=== PATIENT | male | born 1975 | race Caucasian/White ===

== ENCOUNTER 2020-05-24 14:41 | Emergency (ER) | payer BC ==
[2020-05-24 14:48] VITALS: BP 108/52; PULSE 76; RESP 18; TEMP 97.5
--- NOTE | 2020-05-24 15:27 | ED ---
General Adult HPI - General Chief complaint: Recheck/Abnormal Lab/Rx Stated complaint: RT midline leak Time Seen by Provider: 05/24/20 14:49 Source: patient, RN notes reviewed, Caregiver Mode of arrival: wheelchair Limitations: no limitations - History of Present Illness Initial comments: 45-year-old male presents emergency Department chief complaint of leaking midline. 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 room states that noticed some leaking during infusions of antibiotics. No increased redness swelling or pain of the right arm no other complaints. - Related Data Allergies Allergy/AdvReac Type Severity Reaction Status Date / Time vancomycin Allergy Rash/Hives Verified 05/24/20 14:48 Review of Systems ROS Statement: Those systems with pertinent positive or pertinent negative responses have been documented in the HPI. ROS Other: All systems not noted in ROS Statement are negative. Past Medical History Past Medical History: COPD, CVA/TIA, Myocardial Infarction ([place]) Additional Past Medical History / Comment(s): CVA 03/2020 History of Any Multi-Drug Resistant Organisms: None Reported Past Surgical History: Heart Catheterization With Stent Smoking Status: Former smoker Past Alcohol Use History: None Reported Past Drug Use History: None Reported General Exam General appearance: alert, in no apparent distress Head exam: Present: atraumatic, normocephalic, normal inspection Eye exam: Present: normal appearance, PERRL, EOMI. Absent: scleral icterus, conjunctival injection, periorbital swelling ENT exam: Present: normal exam, mucous membranes moist Respiratory exam: Present: normal lung sounds bilaterally. Absent: respiratory distress, wheezes, rales, rhonchi, stridor Cardiovascular Exam: Present: regular rate, normal rhythm, normal heart sounds. Absent: systolic murmur, diastolic murmur, rubs, gallop, clicks Extremities exam: Present: other (Right upper arm there is a midline noted there is no swelling erythema or drainage there is taking surrounding the sites that was placed by an outside facility, it was easily flushed with no leaking) Course Vital Signs 05/24/20 14:42 Temperature 97.5 F L Pulse Rate 76 Respiratory 18 Rate Blood Pressure 108/52 O2 Sat by Pulse 100 Oximetry Medical Decision Making - Medical Decision Making I did contact cardiovascular lab and which he came down evaluated midline changed cervical, change dressing which is clean and dry now. It was infused with no leaking patient was discharged in stable condition. Disposition Clinical Impression: Problem with intravenous catheter Disposition: HOME SELF-CARE Condition: Stable Instructions (If sedation given, give patient instructions): How to Care for Your Midline Catheter (ED) Additional Instructions: Please return to the Emergency Department if symptoms worsen or any other concerns. Is patient prescribed a controlled substance at d/c from ED?: No Referrals: Jose Hodges MD [Primary Care Provider] - 1-2 days Time of Disposition: 15:26
== END 2020-05-24 15:35 | disposition home or self-care (01) ==
LOC: EC 14:41
DX: T82.9XXA Unspecified complication of cardiac and vascular prosthetic device, implant and graft, initial encounter (principal); I25.2 Old myocardial infarction; Z88.1 Allergy status to other antibiotic agents; Z86.73 Personal history of transient ischemic attack (TIA), and cerebral infarction without residual deficits; Z87.891 Personal history of nicotine dependence; Z95.5 Presence of coronary angioplasty implant and graft
CPT/HCPCS: 99282

== ENCOUNTER 2020-05-24 19:29 | Emergency (ER) | payer BC ==
[2020-05-24 19:40] VITALS: BP 112/57; PULSE 80; RESP 18; TEMP 97.9
--- NOTE | 2020-05-24 20:18 | ED ---
General Adult HPI - General Chief complaint: Recheck/Abnormal Lab/Rx Stated complaint: Revisit/ leaking midline Time Seen by Provider: 05/24/20 19:49 Source: patient, family Mode of arrival: wheelchair Limitations: no limitations - History of Present Illness Initial comments: 45-year-old male presents to the emergency room for a chief complaint of midline issues. Patient has a midline placed for a heart valve infection. Care is through [facility]. Apparently earlier today his midline started to leak during one of his infusions. He came to the hospital and it was evaluated by the Safety Associate who did an infusion without it leaking and felt it was fine. However on patient's last infusion is started to leak again. They therefore presented to the emergency room as patient's does not feel he is getting the entire antibiotic.Patient has no other complaints at this time including shortness of breath, chest pain, abdominal pain, nausea or vomiting, headache, or visual changes. - Related Data Home Medications Medication Instructions Recorded Confirmed ALPRAZolam [Xanax] 0.25 mg PO BID PRN 05/24/20 05/24/20 Allopurinol [Zyloprim] 100 mg PO HS 05/24/20 05/24/20 Amiodarone HCl [Pacerone] 100 mg PO HS 05/24/20 05/24/20 Atorvastatin [Lipitor] 40 mg PO HS 05/24/20 05/24/20 Clopidogrel [Plavix] 75 mg PO HS 05/24/20 05/24/20 Escitalopram [Lexapro] 10 mg PO DAILY 05/24/20 05/24/20 Furosemide [Lasix] 20 mg PO HS 05/24/20 05/24/20 Midodrine [ProAmatine] 5 mg PO BID 05/24/20 05/24/20 Penicillin Unknown Dose 1 dose IV Q4H 05/24/20 05/24/20 Topiramate [Topamax] 50 mg PO BID 05/24/20 05/24/20 levETIRAcetam [Keppra] 500 mg PO Q12HR 05/24/20 05/24/20 Allergies Allergy/AdvReac Type Severity Reaction Status Date / Time vancomycin Allergy Rash/Hives Verified 05/24/20 15:33 Review of Systems ROS Statement: Those systems with pertinent positive or pertinent negative responses have been documented in the HPI. ROS Other: All systems not noted in ROS Statement are negative. Past Medical History Past Medical History: COPD, CVA/TIA, Myocardial Infarction ([place]) Additional Past Medical History / Comment(s): CVA 03/2020 History of Any Multi-Drug Resistant Organisms: None Reported Past Surgical History: Heart Catheterization With Stent Smoking Status: Former smoker Past Alcohol Use History: None Reported Past Drug Use History: None Reported General Exam Limitations: no limitations General appearance: alert Head exam: Present: atraumatic Eye exam: Present: normal appearance ENT exam: Present: normal exam, mucous membranes moist Neck exam: Present: normal inspection. Absent: full ROM Respiratory exam: Present: normal lung sounds bilaterally. Absent: respiratory distress Cardiovascular Exam: Present: regular rate, normal rhythm, normal heart sounds GI/Abdominal exam: Present: soft. Absent: distended, tenderness Extremities exam: Present: other (Patient has midline placed in the right arm. There is no erythema or edema around this area. No bleeding. No streaking redness.) Course Vital Signs 05/24/20 19:37 Temperature 97.9 F Pulse Rate 80 Respiratory 18 Rate Blood Pressure 112/57 O2 Sat by Pulse 98 Oximetry Medical Decision Making - Medical Decision Making Unfortunately it is 8 PM and we do not have anyone available to replace midline. Peripheral line was established and patient was given a dose of his antibiotics. He will go to [facility] tomorrow as this is where the midline was placed to address this concern. He will return to the emergency room for any worsening symptoms. Disposition Clinical Impression: Problem with intravenous catheter Disposition: HOME SELF-CARE Condition: Good Instructions (If sedation given, give patient instructions): How to Care for Your Midline Catheter (ED) Additional Instructions: Please go to [facility] tomorrow so your medical team can address this issue. Please return to the emergency room for any worsening symptoms. Is patient prescribed a controlled substance at d/c from ED?: No Referrals: Jose Hodges MD [Primary Care Provider] - 1-2 days Time of Disposition: 20:17
== END 2020-05-24 21:00 | disposition home or self-care (01) ==
LOC: EC 19:29
DX: T82.9XXA Unspecified complication of cardiac and vascular prosthetic device, implant and graft, initial encounter (principal); J44.9 Chronic obstructive pulmonary disease, unspecified; I25.2 Old myocardial infarction; Z79.02 Long term (current) use of antithrombotics/antiplatelets; Z79.899 Other long term (current) drug therapy; Z88.1 Allergy status to other antibiotic agents; Z86.73 Personal history of transient ischemic attack (TIA), and cerebral infarction without residual deficits; Z95.5 Presence of coronary angioplasty implant and graft; Z87.891 Personal history of nicotine dependence
CPT/HCPCS: 99283

== ENCOUNTER 2020-05-26 09:04 | Emergency (ER) | payer BC ==
[2020-05-26] MEDS ORDERED: SODIUM CHLORIDE 0.9% 1,000 ML IV STA ×2 (10:11)
[2020-05-26] MEDS ORDERED: HYDROmorphone 1 MG/ML 1 ML SYRINGE IVP STA (10:15)
--- NOTE | 2020-05-26 10:17 | ED ---
Recheck HPI - General Chief Complaint: Recheck/Abnormal Lab/Rx Stated Complaint: needs midline changed/dehydration/headache Time Seen by Provider: 05/26/20 09:45 Source: patient, family, RN notes reviewed Mode of arrival: ambulatory Limitations: no limitations - History of Present Illness Initial Comments: This is a 45-year-old male with a history of a cerebral aneurysm and bleed this past year who has residual left-sided upper lower extremity weakness who presents with complaints of waking up with a headache this morning he states his occipital sharp 8/10 severity additionally he's had PICC line problems and has not been able to get his antibiotics for at least 2 days. He was instructed to come for evaluation he apparently has not been eating and drinking well his urine has become dark. He does feel generally weak. No fevers chills or sweats reported - Related Data Home Medications Medication Instructions Recorded Confirmed ALPRAZolam [Xanax] 0.25 mg PO BID PRN 05/24/20 05/26/20 Allopurinol [Zyloprim] 100 mg PO HS 05/24/20 05/26/20 Amiodarone HCl [Pacerone] 100 mg PO HS 05/24/20 05/26/20 Atorvastatin [Lipitor] 40 mg PO HS 05/24/20 05/26/20 Clopidogrel [Plavix] 75 mg PO HS 05/24/20 05/26/20 Escitalopram [Lexapro] 10 mg PO DAILY 05/24/20 05/26/20 Furosemide [Lasix] 20 mg PO HS 05/24/20 05/26/20 Midodrine [ProAmatine] 5 mg PO BID 05/24/20 05/26/20 Penicillin Unknown Dose 1 dose IV Q4H 05/24/20 05/26/20 Topiramate [Topamax] 50 mg PO BID 05/24/20 05/26/20 levETIRAcetam [Keppra] 500 mg PO Q12HR 05/24/20 05/26/20 Allergies Allergy/AdvReac Type Severity Reaction Status Date / Time vancomycin Allergy Rash/Hives Verified 05/26/20 10:34 Review of Systems ROS Statement: Those systems with pertinent positive or pertinent negative responses have been documented in the HPI. ROS Other: All systems not noted in ROS Statement are negative. Past Medical History Past Medical History: COPD, CVA/TIA, Myocardial Infarction ([place]) Additional Past Medical History / Comment(s): CVA 03/2020 History of Any Multi-Drug Resistant Organisms: None Reported Past Surgical History: Heart Catheterization With Stent Past Psychological History: No Psychological Hx Reported Smoking Status: Former smoker Past Alcohol Use History: None Reported Past Drug Use History: None Reported General Exam - General Exam Comments Initial Comments: This a well-developed sec appearing male who is awake alert oriented 3 Limitations: no limitations General appearance: alert, in no apparent distress Head exam: Present: atraumatic, normocephalic, normal inspection Eye exam: Present: normal appearance, PERRL, EOMI. Absent: scleral icterus, conjunctival injection, periorbital swelling ENT exam: Present: mucous membranes dry Neck exam: Present: normal inspection, full ROM, other (ALLERGYorbruits). Absent: tenderness, meningismus, lymphadenopathy Respiratory exam: Present: normal lung sounds bilaterally. Absent: respiratory distress, wheezes, rales, rhonchi, stridor Cardiovascular Exam: Present: regular rate, normal rhythm, normal heart sounds. Absent: systolic murmur, diastolic murmur, rubs, gallop, clicks GI/Abdominal exam: Present: soft, normal bowel sounds. Absent: distended, tend erness, guarding, rebound, rigid Extremities exam: Present: normal inspection, normal capillary refill. Absent: full ROM (Left-sided upper lower extremity hemiplegia), tenderness, pedal edema, joint swelling, calf tenderness Back exam: Present: normal inspection Neurological exam: Present: alert, oriented X3, CN II-XII intact Psychiatric exam: Present: normal affect, normal mood Skin exam: Present: warm, dry, intact, normal color. Absent: rash Course Vital Signs 05/26/20 05/26/20 05/26/20 09:08 11:30 12:00 Temperature 98 F Pulse Rate 92 83 84 Respiratory 18 18 18 Rate Blood Pressure 117/48 107/49 105/52 O2 Sat by Pulse 96 100 98 Oximetry - Reevaluation(s) Reevaluation #1: 05/26/20 12:41 Patient has no new symptoms on reevaluation. Medical Decision Making - Medical Decision Making I did discuss findings with the patient and his as well as with Dr. Acosta at [facility]. I also did attempt to contact Dr. Boswell. Patient be transferred by EMS. Year to year. - Lab Data Result diagrams: 05/26/20 10:19 05/26/20 10:19 Lab Results 05/26/20 05/26/20 05/26/20 Range/Units 10:19 10:19 10:19 WBC 12.2 H (3.8-10.6) k/uL RBC 3.85 L (4.30-5.90) m/uL Hgb 11.7 L (13.0-17.5) gm/dL Hct 35.4 L (39.0-53.0) % MCV 91.9 (80.0-100.0) fL MCH 30.5 (25.0-35.0) pg MCHC 33.2 (31.0-37.0) g/dL RDW 14.8 (11.5-15.5) % Plt Count 276 (150-450) k/uL MPV 7.0 Neutrophils % 88 % Lymphocytes % 7 % Monocytes % 3 % Eosinophils % 1 % Basophils % 0 % Neutrophils # 10.7 H (1.3-7.7) k/uL Lymphocytes # 0.9 L (1.0-4.8) k/uL Monocytes # 0.4 (0-1.0) k/uL Eosinophils # 0.1 (0-0.7) k/uL Basophils # 0.0 (0-0.2) k/uL Sodium 138 (137-145) mmol/L Potassium 3.9 (3.5-5.1) mmol/L Chloride 111 H (98-107) mmol/L Carbon Dioxide 20 L (22-30) mmol/L Anion Gap 7 mmol/L BUN 16 (9-20) mg/dL Creatinine 1.05 (0.66-1.25) mg/dL Est GFR (CKD-EPI)AfAm >90 (>60 ml/min/1.73 sqM) Est GFR (CKD-EPI)NonAf 85 (>60 ml/min/1.73 sqM) Glucose 96 (74-99) mg/dL Calcium 8.9 (8.4-10.2) mg/dL Magnesium 1.8 (1.6-2.3) mg/dL Total Bilirubin 0.7 (0.2-1.3) mg/dL AST 17 (17-59) U/L ALT 11 (4-49) U/L Alkaline Phosphatase 132 H (38-126) U/L Creatine Kinase <20 L (55-170) U/L Total Protein 5.8 L (6.3-8.2) g/dL Albumin 3.1 L (3.5-5.0) g/dL Urine Color Yellow Urine Appearance Clear (Clear) Urine pH 5.5 (5.0-8.0) Ur Specific [place] 1.016 (1.001-1.035) Urine Protein Negative (Negative) Urine Glucose (UA) Negative (Negative) Urine Ketones Negative (Negative) Urine Blood Negative (Negative) Urine Nitrite Negative (Negative) Urine Bilirubin Negative (Negative) Urine Urobilinogen <2.0 (<2.0) mg/dL Ur Leukocyte Esterase Negative (Negative) - Radiology Data Radiology results: report reviewed (I did review the imaging as an did discuss the case with Dr. joseph and previously Dr. Eastman. Patient did have evidence of bleeding in the left he does have a 4 mm distal left MCA aneurysm with evidence of subarachnoid bleed.), image reviewed Critical Care Time Critical Care Time: Yes Total Critical Care Time: 39 Disposition Clinical Impression: Subarachnoid hemorrhage due to cerebral aneurysm, Cephalgia, Occluded PICC line Disposition: OTHER INSTITUTION NOT DEFINED Condition: Serious Referrals: Jose Hodges MD [Primary Care Provider] - 1-2 days - Out of Hospital Transfer - Req. Specs Out of Hospital Transfer - Requested Specifics: Other Emergency Center
[2020-05-26 10:45] LABS: Basophils % (A) 0 %; Eosinophils # (A) 0.1 k/uL (0-0.7); Eosinophils % (A) 1 %; HCT 35.4 % (39.0-53.0); HGB 11.7 gm/dL (13.0-17.5); Lymphocytes # (A) 0.9 k/uL (1.0-4.8); Lymphocytes % (A) 7 %; MCH 30.5 pg (25.0-35.0); MCHC 33.2 g/dL (31.0-37.0); MCV 91.9 fL (80.0-100.0); Monocytes # (A) 0.4 k/uL (0-1.0); Monocytes % (A) 3 %; Neutrophils # (A) 10.7 k/uL (1.3-7.7); Neutrophils % (A) 88 %; Platelet Count 276 k/uL (150-450); RBC 3.85 m/uL (4.30-5.90); RDW 14.8 % (11.5-15.5); WBC 12.2 k/uL (3.8-10.6)
[2020-05-26 10:47] LABS: Appearance,Urine Clear (Clear); Bilirubin,Urine Negative (Negative); Blood,Urine Negative (Negative); Color,Urine Yellow; Glucose,Urine (UA) Negative (Negative); Ketones,Urine Negative (Negative); Leukocyte Esterase,Urine Negative (Negative); Nitrite,Urine Negative (Negative); PH, Urine 5.5 (5.0-8.0); Protein,Urine Negative (Negative); Specific Gravity,Urine 1.016 (1.001-1.035); Urobilinogen,Urine <2.0 mg/dL (<2.0)
[2020-05-26 10:55] LABS: ALT 11 U/L (4-49); AST 17 U/L (17-59); African American GFR (CKD) >90 (>60 ml/min/1.73 sqM); Albumin 3.1 g/dL (3.5-5.0); Alkaline Phosphatase 132 U/L (38-126); Anion Gap 7 mmol/L; Blood Urea Nitrogen 16 mg/dL (9-20); Calcium 8.9 mg/dL (8.4-10.2); Carbon Dioxide 20 mmol/L (22-30); Chloride 111 mmol/L (98-107); Creatine Kinase <20 U/L (55-170); Glucose 96 mg/dL (74-99); Magnesium 1.8 mg/dL (1.6-2.3); Non-African American GFR(CKD) 85 (>60 ml/min/1.73 sqM); Potassium 3.9 mmol/L (3.5-5.1); Sodium 138 mmol/L (137-145); Total Bilirubin 0.7 mg/dL (0.2-1.3); Total Protein 5.8 g/dL (6.3-8.2)
[2020-05-26] MEDS ORDERED: PENICILLIN POTASSIUM IVPB STA ×2 (10:56)
[2020-05-26] MEDS ORDERED: DEXTROSE 5% IVPB STA ×2 (10:56)
[2020-05-26] MEDS ORDERED: WATER IVPB STA ×2 (10:56)
--- NOTE | 2020-05-26 11:31 | CT ---
EXAMINATION TYPE: CT brain wo con DATE OF EXAM: 05/26/2020 COMPARISON: HISTORY: Headache, acutye neuro deficits CT DLP: 1072.4 mGycm. Automated Exposure Control for Dose Reduction was Utilized. TECHNIQUE: CT scan of the head is performed without contrast. FINDINGS: There is no acute intracranial hemorrhage, mass effect, or midline shift identified. The ventricles and sulci are within normal limits in size. The globes are intact and the visualized sin uses are clear. There is an area of low attenuation in the right parietal lobe compatible with enceph alomalacia. Punctate hyperdensity may represent calcification. There appears to be postsurgical change involving the right calvarium. There is an area of tiny hyperdensity involving the left parietal lobe along the cortical gyrus super iorly. Tiny area of subarachnoid hemorrhage is suspected. Similar finding seen in the left frontal lo be. No midline shift or mass effect. There also appears to be low attenuation within the left parieta l lobe near the temporal parietal junction on axial image 21 measuring 1 cm. Cannot exclude hyperdens ity or aneurysm within the left MCA on axial image 16. IMPRESSION: 1. Findings are suspicious for an aneurysm of the left MCA noted on axial image 16. Hyperdense artery sign not and acute thrombosis not excluded. 2. Within the left frontal lobe best noted on sagittal image 38 and within the left parietal lobe bes t noted on axial image 45 there is faint linear hyperdensity which could represent acute cortical or subarachnoid hemorrhage. Alternatively this could represent thrombosed blood vessels. Case discussed with ER physician. Recommend CTA for further evaluation. MRI also suggested. 3. Postsurgical change with remote infarct involving the right parietal lobe.
--- NOTE | 2020-05-26 12:10 | CT ---
"EXAMINATION TYPE: CT angio head DATE OF EXAM: 05/26/2020 11:59 AM COMPARISON: CT brain earlier today. HISTORY: JIMÉNEZ, abn CT brain without CT DLP: 814.6 mGycm Automated exposure control for dose reduction was used. TECHNIQUE: Performed with IV Contrast, patient injected with 100 mL of Isovue 370. MIP images are created and reviewed. FINDINGS: There is dominant and larger caliber left vertebral artery. Both vertebral arteries are patent to bas ilar junction. No significant focal stenosis or aneurysmal change. Patent bilateral posterior communi cating arteries. Images of the anterior circulation show patent anterior communicating artery. There is no significant focal stenosis or aneurysmal change centrally. There is confirmation of 4 mm aneurysm in the distal left MCA after the trifurcation corresponding to the middle branch seen axial image 25 corresponding to sagittal image 20 series 403 where it is best visualized. Old infarct right parietal lobe with right frontoparietal craniotomy changes redemonstrated. 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 Results communicated to ordering ER physician via telephone at time of dictation. A Document Only message has been documented for Delta Fields MD in the [employer] Critical Re sult system on 05/26/2020 12:08 PM, Message ID [id number]."
[2020-05-26] MEDS ORDERED: LORazepam 2 MG/ML INJ IV STA ×3 (12:33→14:35)
[2020-05-26 12:54] VITALS: TEMP 98
[2020-05-26] MEDS ORDERED: levETIRAcetam IV 1,000 MG in SALINE 1 100ML.BAG IVPB STA (13:28)
[2020-05-26] MEDS: LORazepam 2 MG/ML INJ IV STA ×2 (13:30→13:35)
[2020-05-26 13:34] LABS: Glucose,Whole Blood 105 mg/dL (75-99)
[2020-05-26] MEDS ORDERED: SUCCINYLCHOLINE CHLORIDE VIAL 200 MG/10 ML VIAL IV STA (13:48)
[2020-05-26] MEDS ORDERED: SUCCINYLCHOLINE CHLORIDE VIAL 200 MG/10 ML VIAL IV ONE (13:55)
[2020-05-26] MEDS ORDERED: cefTRIAXone IN SWFI 1,000 MG/10 ML SYRINGE IVP STA (14:01)
[2020-05-26] MEDS ORDERED: MIDAZOLAM 1 MG/ML 5 ML VIAL IV STA (14:02)
[2020-05-26] MEDS ORDERED: FUROSEMIDE 10 MG/ML 4 ML VIAL IV STA (14:06)
[2020-05-26] MEDS ORDERED: SODIUM CHLORIDE 0.9% 1,000 ML IV ONE (14:15)
--- NOTE | 2020-05-26 14:15 | XR ---
EXAMINATION TYPE: XR chest 1V confirm line [facility] DATE OF EXAM: 05/26/2020 COMPARISON: NONE HISTORY: 45-year-old male intubation TECHNIQUE: Single frontal view of the chest is obtained. FINDINGS: ET tube tip 3 cm from the jose eduardo. NG tube in place. Loop recorder device projects over the left side of the heart. Severe diffuse bilateral airspace opacity. No sizable pleural effusion. IMPRESSION: Severe diffuse bilateral airspace disease. Correlate for ARDS or severe pulmonary edema.
[2020-05-26] MEDS ORDERED: IPRATROPIUM-ALBUTEROL 3 ML NEB INHALATION STA (14:17)
--- NOTE | 2020-05-26 14:18 | ED ---
Medical Decision Making - Medical Decision Making Upon discharge from the emergency department before the patient left he began having tonic-clonic seizure activity. This did require IV benzodiazepine as well as IV Keppra. The patient initially did not respond to this and was noted to be decompensating with respect her respiratory status. This did require emergent intubation for airway protection. This was accomplished using RSI. Was able to intubate the patient successfully with a #8 endotracheal tube. X- ray afterwards showed good positioning of the tube above the jose eduardo there was good color change on the colorimeter. The OG-tube was also place and appears be an upper positioning. Patient was placed on IV propofol. The patient was stabilized within the limits the neurosurgery team did contact me and would like the patient transported [facility]. The patient's significant other was notified and was allowed to come to see the patient prior to transfer. Patient is currently critical condition of note the patient had clear lung sounds on the initial encounter. It was later noted the patient after seizing was demonstrating bilateral rhonchi and his breath sounds which improved markedly after intubation he did have frothy somewhat blood-tinged sputum which was suctioned up. - Lab Data Result diagrams: 05/26/20 10:19 05/26/20 10:19 Lab Results 05/26/20 05/26/20 05/26/20 Range/Units 10:19 10:19 10:19 WBC 12.2 H (3.8-10.6) k/uL RBC 3.85 L (4.30-5.90) m/uL Hgb 11.7 L (13.0-17.5) gm/dL Hct 35.4 L (39.0-53.0) % MCV 91.9 (80.0-100.0) fL MCH 30.5 (25.0-35.0) pg MCHC 33.2 (31.0-37.0) g/dL RDW 14.8 (11.5-15.5) % Plt Count 276 (150-450) k/uL MPV 7.0 Neutrophils % 88 % Lymphocytes % 7 % Monocytes % 3 % Eosinophils % 1 % Basophils % 0 % Neutrophils # 10.7 H (1.3-7.7) k/uL Lymphocytes # 0.9 L (1.0-4.8) k/uL Monocytes # 0.4 (0-1.0) k/uL Eosinophils # 0.1 (0-0.7) k/uL Basophils # 0.0 (0-0.2) k/uL Sodium 138 (137-145) mmol/L Potassium 3.9 (3.5-5.1) mmol/L Chloride 111 H (98-107) mmol/L Carbon Dioxide 20 L (22-30) mmol/L Anion Gap 7 mmol/L BUN 16 (9-20) mg/dL Creatinine 1.05 (0.66-1.25) mg/dL Est GFR (CKD-EPI)AfAm >90 (>60 ml/min/1.73 sqM) Est GFR (CKD-EPI)NonAf 85 (>60 ml/min/1.73 sqM) Glucose 96 (74-99) mg/dL POC Glucose (mg/dL) (75-99) mg/dL POC Glu Email Operations Manager ID Calcium 8.9 (8.4-10.2) mg/dL Magnesium 1.8 (1.6-2.3) mg/dL Total Bilirubin 0.7 (0.2-1.3) mg/dL AST 17 (17-59) U/L ALT 11 (4-49) U/L Alkaline Phosphatase 132 H (38-126) U/L Creatine Kinase <20 L (55-170) U/L Total Protein 5.8 L (6.3-8.2) g/dL Albumin 3.1 L (3.5-5.0) g/dL Urine Color Yellow Urine Appearance Clear (Clear) Urine pH 5.5 (5.0-8.0) Ur Specific [place] 1.016 (1.001-1.035) Urine Protein Negative (Negative) Urine Glucose (UA) Negative (Negative) Urine Ketones Negative (Negative) Urine Blood Negative (Negative) Urine Nitrite Negative (Negative) Urine Bilirubin Negative (Negative) Urine Urobilinogen <2.0 (<2.0) mg/dL Ur Leukocyte Esterase Negative (Negative) 05/26/20 Range/Units 13:32 WBC (3.8-10.6) k/uL RBC (4.30-5.90) m/uL Hgb (13.0-17.5) gm/dL Hct (39.0-53.0) % MCV (80.0-100.0) fL MCH (25.0-35.0) pg MCHC (31.0-37.0) g/dL RDW (11.5-15.5) % Plt Count (150-450) k/uL MPV Neutrophils % % Lymphocytes % % Monocytes % % Eosinophils % % Basophils % % Neutrophils # (1.3-7.7) k/uL Lymphocytes # (1.0-4.8) k/uL Monocytes # (0-1.0) k/uL Eosinophils # (0-0.7) k/uL Basophils # (0-0.2) k/uL Sodium (137-145) mmol/L Potassium (3.5-5.1) mmol/L Chloride (98-107) mmol/L Carbon Dioxide (22-30) mmol/L Anion Gap mmol/L BUN (9-20) mg/dL Creatinine (0.66-1.25) mg/dL Est GFR (CKD-EPI)AfAm (>60 ml/min/1.73 sqM) Est GFR (CKD-EPI)NonAf (>60 ml/min/1.73 sqM) Glucose (74-99) mg/dL POC Glucose (mg/dL) 105 H (75-99) mg/dL POC Glu Email Operations Manager ID Mary Young Calcium (8.4-10.2) mg/dL Magnesium (1.6-2.3) mg/dL Total Bilirubin (0.2-1.3) mg/dL AST (17-59) U/L ALT (4-49) U/L Alkaline Phosphatase (38-126) U/L Creatine Kinase (55-170) U/L Total Protein (6.3-8.2) g/dL Albumin (3.5-5.0) g/dL Urine Color Urine Appearance (Clear) Urine pH (5.0-8.0) Ur Specific [place] (1.001-1.035) Urine Protein (Negative) Urine Glucose (UA) (Negative) Urine Ketones (Negative) Urine Blood (Negative) Urine Nitrite (Negative) Urine Bilirubin (Negative) Urine Urobilinogen (<2.0) mg/dL Ur Leukocyte Esterase (Negative) - Radiology Data Radiology results: report reviewed (X-ray shows evidence of bilateral airspace disease the tube is about 3 cm above the jose eduardo. OG tube is in place), image reviewed Critical Care Time Critical Care Time: Yes Total Critical Care Time: 39 Critical Care Time: 39 minutes of critical care time which included the continued care of the patient sees and with respiratory distress this does not include the intubation time. It does include multiple reevaluation the patient discussed with the neurosurgery team at [facility] Disposition Clinical Impression: Subarachnoid hemorrhage due to cerebral aneurysm, Cephalgia, Occluded PICC line, Acute respiratory failure, Hypotensive episode Disposition: OTHER INSTITUTION NOT DEFINED Condition: Critical Is patient prescribed a controlled substance at d/c from ED?: No Referrals: Jose Hodges MD [Primary Care Provider] - 1-2 days - Out of Hospital Transfer - Req. Specs Out of Hospital Transfer - Requested Specifics: Other Emergency Center Procedures - Intubation Sedative: Versed Paralytic: Succinylcholine Mg Given: 100 Laryngoscope: Hdz Size: 3 ET Tube Size: 8 ET Tube Uncuffed: No (Cuffed) Tube Secured Depth (cm): 23 Tube Secured Location: lips Patient Tolerated Procedure: well Intubation Complications: none
[2020-05-26] MEDS ORDERED: DEXAMETHASONE SOD PHOSPHATE 10 MG/ML 1 ML VIAL IV STA (14:21)
[2020-05-26 14:50] VITALS: BP 106/48; PULSE 99; RESP 20
--- NOTE | 2020-05-27 07:14 | ED ---
Medical Decision Making - Lab Data Result diagrams: 05/26/20 10:19 05/26/20 10:19 Lab Results 05/26/20 05/26/20 05/26/20 Range/Units 10:19 10:19 10:19 WBC 12.2 H (3.8-10.6) k/uL RBC 3.85 L (4.30-5.90) m/uL Hgb 11.7 L (13.0-17.5) gm/dL Hct 35.4 L (39.0-53.0) % MCV 91.9 (80.0-100.0) fL MCH 30.5 (25.0-35.0) pg MCHC 33.2 (31.0-37.0) g/dL RDW 14.8 (11.5-15.5) % Plt Count 276 (150-450) k/uL MPV 7.0 Neutrophils % 88 % Lymphocytes % 7 % Monocytes % 3 % Eosinophils % 1 % Basophils % 0 % Neutrophils # 10.7 H (1.3-7.7) k/uL Lymphocytes # 0.9 L (1.0-4.8) k/uL Monocytes # 0.4 (0-1.0) k/uL Eosinophils # 0.1 (0-0.7) k/uL Basophils # 0.0 (0-0.2) k/uL Sodium 138 (137-145) mmol/L Potassium 3.9 (3.5-5.1) mmol/L Chloride 111 H (98-107) mmol/L Carbon Dioxide 20 L (22-30) mmol/L Anion Gap 7 mmol/L BUN 16 (9-20) mg/dL Creatinine 1.05 (0.66-1.25) mg/dL Est GFR (CKD-EPI)AfAm >90 (>60 ml/min/1.73 sqM) Est GFR (CKD-EPI)NonAf 85 (>60 ml/min/1.73 sqM) Glucose 96 (74-99) mg/dL POC Glucose (mg/dL) (75-99) mg/dL POC Glu Cell Efficiency Supervisor ID Calcium 8.9 (8.4-10.2) mg/dL Magnesium 1.8 (1.6-2.3) mg/dL Total Bilirubin 0.7 (0.2-1.3) mg/dL AST 17 (17-59) U/L ALT 11 (4-49) U/L Alkaline Phosphatase 132 H (38-126) U/L Creatine Kinase <20 L (55-170) U/L Total Protein 5.8 L (6.3-8.2) g/dL Albumin 3.1 L (3.5-5.0) g/dL Urine Color Yellow Urine Appearance Clear (Clear) Urine pH 5.5 (5.0-8.0) Ur Specific [place] 1.016 (1.001-1.035) Urine Protein Negative (Negative) Urine Glucose (UA) Negative (Negative) Urine Ketones Negative (Negative) Urine Blood Negative (Negative) Urine Nitrite Negative (Negative) Urine Bilirubin Negative (Negative) Urine Urobilinogen <2.0 (<2.0) mg/dL Ur Leukocyte Esterase Negative (Negative) Coronavirus (PCR) (Not Detectd) 05/26/20 05/26/20 Range/Units 13:32 14:26 WBC (3.8-10.6) k/uL RBC (4.30-5.90) m/uL Hgb (13.0-17.5) gm/dL Hct (39.0-53.0) % MCV (80.0-100.0) fL MCH (25.0-35.0) pg MCHC (31.0-37.0) g/dL RDW (11.5-15.5) % Plt Count (150-450) k/uL MPV Neutrophils % % Lymphocytes % % Monocytes % % Eosinophils % % Basophils % % Neutrophils # (1.3-7.7) k/uL Lymphocytes # (1.0-4.8) k/uL Monocytes # (0-1.0) k/uL Eosinophils # (0-0.7) k/uL Basophils # (0-0.2) k/uL Sodium (137-145) mmol/L Potassium (3.5-5.1) mmol/L Chloride (98-107) mmol/L Carbon Dioxide (22-30) mmol/L Anion Gap mmol/L BUN (9-20) mg/dL Creatinine (0.66-1.25) mg/dL Est GFR (CKD-EPI)AfAm (>60 ml/min/1.73 sqM) Est GFR (CKD-EPI)NonAf (>60 ml/min/1.73 sqM) Glucose (74-99) mg/dL POC Glucose (mg/dL) 105 H (75-99) mg/dL POC Glu Cell Efficiency Supervisor Mary Vera Calcium (8.4-10.2) mg/dL Magnesium (1.6-2.3) mg/dL Total Bilirubin (0.2-1.3) mg/dL AST (17-59) U/L ALT (4-49) U/L Alkaline Phosphatase (38-126) U/L Creatine Kinase (55-170) U/L Total Protein (6.3-8.2) g/dL Albumin (3.5-5.0) g/dL Urine Color Urine Appearance (Clear) Urine pH (5.0-8.0) Ur Specific [place] (1.001-1.035) Urine Protein (Negative) Urine Glucose (UA) (Negative) Urine Ketones (Negative) Urine Blood (Negative) Urine Nitrite (Negative) Urine Bilirubin (Negative) Urine Urobilinogen (<2.0) mg/dL Ur Leukocyte Esterase (Negative) Coronavirus (PCR) Not Detected (Not Detectd) Disposition Clinical Impression: Subarachnoid hemorrhage due to cerebral aneurysm, Cephalgia, Occluded PICC line, Acute respiratory failure, Hypotensive episode, New onset seizure, Hypoxemia Disposition: OTHER INSTITUTION NOT DEFINED Condition: Critical Referrals: Jose Hodges MD [Primary Care Provider] - 1-2 days - Out of Hospital Transfer - Req. Specs Out of Hospital Transfer - Requested Specifics: Other Emergency Center
== END 2020-05-26 14:48 | disposition short-term general hospital (02) ==
LOC: EC 09:04
DX: I60.6 Nontraumatic subarachnoid hemorrhage from other intracranial arteries (principal); R53.1 Weakness; J96.01 Acute respiratory failure with hypoxia; G40.909 Epilepsy, unspecified, not intractable, without status epilepticus; T82.594A Other mechanical complication of infusion catheter, initial encounter; Z20.822 Contact with and (suspected) exposure to COVID-19; I25.2 Old myocardial infarction; Z79.02 Long term (current) use of antithrombotics/antiplatelets; Z79.899 Other long term (current) drug therapy; Z87.891 Personal history of nicotine dependence; Z88.1 Allergy status to other antibiotic agents; Z86.73 Personal history of transient ischemic attack (TIA), and cerebral infarction without residual deficits; Z95.5 Presence of coronary angioplasty implant and graft
CPT/HCPCS: 36415; 80053; 82550; 83735; 85025; 81003; 87040; 87635; 70496; 70450; 99291; 96365; 96375 ×6; 96376 ×2; 96361 ×3; 31500; J0330; J2060; J1100; J1940; J0696; J2250; J1170; J2704; J1953; J2540; 94002